=== PATIENT | male | born 1950 | race Caucasian/White ===

== ENCOUNTER 2019-06-11 09:25 | Outpatient (CLI) | payer MEDICARE, BC ==
[2019-06-11 17:15] LABS: BASOPHILS # (AUTO) 0.1 10^3/uL (0.0-0.1); BASOPHILS % (AUTO) 0.9 %; EOSINOPHILS # (AUTO) 0.2 10^3/uL (0.0-0.7); EOSINOPHILS % (AUTO) 3.5 %; HGB - HEMOGLOBIN 14.7 g/dL (14.0-18.0); LYMPHOCYTES # (AUTO) 1.5 10^3/uL (1.5-3.5); LYMPHOCYTES % (AUTO) 28.1 %; MEAN CORPUSCULAR HEMOGLOBIN 27.5 pg (27.0-31.0); MEAN PLATELET VOLUME 10.8 fL (7.4-11.4); MONOCYTES # (AUTO) 0.5 10^3/uL (0.0-1.0); MONOCYTES % (AUTO) 8.5 %; NEUTROPHILS # (AUTO) 3.2 10^3/uL (1.5-6.6); NEUTROPHILS % (AUTO) 58.8 %; PLT - PLATELET COUNT 196 10^3/uL (130-450); RED BLOOD COUNT 5.35 10^6/uL (4.70-6.10); RED CELL DISTRIBUTION WIDTH 13.4 % (12.0-15.0); WHITE BLOOD COUNT 5.4 x10^3/uL (4.8-10.8)
[2019-06-11 18:10] LABS: ALBUMIN 4.1 g/dL (3.2-5.5); ALBUMIN/GLOBULIN RATIO 1.2 (1.0-2.2); ALKALINE PHOSPHATASE 73 IU/L (42-121); ALT ALANINE AMINOTRANSFERASE 27 IU/L (10-60); AST ASPARTATE AMINOTRANSFERASE 26 IU/L (10-42); BILIRUBIN,TOTAL 1.1 mg/dL (0.2-1.0); BUN - BLOOD UREA NITROGEN 25 mg/dL (6-20); CALCIUM 9.5 mg/dL (8.5-10.3); CARBON DIOXIDE - CO2 26 mmol/L (21-32); CHLORIDE 103 mmol/L (101-111); CHOL/HDL RATIO 4.9 (<5.0); CHOLESTEROL 178 mg/dL; CREATININE 1.1 mg/dL (0.6-1.2); GFR - MDRD 66 (>89); GLUCOSE 106 mg/dL (70-100); HDL CHOLESTEROL 36 mg/dL; LDL CHOLESTEROL,CALCULATED 121 mg/dL; LDL/HDL RATIO 3.4 (<3.6); SODIUM 136 mmol/L (135-145); TOTAL PROTEIN 7.5 g/dL (6.7-8.2); VLDL CHOLESTEROL 21 mg/dL
[2019-06-11 18:12] LABS: CRP - C-REACTIVE PROTEIN < 1.0 mg/dL (0-1.0)
[2019-06-12 13:27] LABS: HEPATITIS C ANTIBODY NON-REACTIVE (NON-REACTIVE)
[2019-06-17 07:05] LABS: HB2 TOTAL 14.6 g/dL; HEMOGLOBIN A1C 0.64 g/dL; HEMOGLOBIN A1C % 6.2 % (4.6-6.2)
== END 2019-06-11 09:26 | disposition home or self-care (01) ==
LOC: LAB.S 09:25
PROVIDERS: ATTEND Internal Medicine
DX: Z01.818 Encounter for other preprocedural examination (principal); N40.0 Benign prostatic hyperplasia without lower urinary tract symptoms; Z13.6 Encounter for screening for cardiovascular disorders; Z79.899 Other long term (current) drug therapy; I10 Essential (primary) hypertension; G47.33 Obstructive sleep apnea (adult) (pediatric); Z20.2 Contact with and (suspected) exposure to infections with a predominantly sexual mode of transmission; F34.1 Dysthymic disorder; Z11.59 Encounter for screening for other viral diseases; Z87.39 Personal history of other diseases of the musculoskeletal system and connective tissue
CPT/HCPCS: 36415; 80053; 80061; 81599; 83036; 83721; 84153; 84443; 85025; 85651; 86140; 86780; 86803

== ENCOUNTER 2021-01-25 09:17 | Outpatient (CLI) | payer MEDICARE, BC ==
[2021-01-25 12:22] VITALS: BP 129/82
--- NOTE | 2021-01-25 12:22 | SLEEP CARE CONSULTATION ---
Information from patient questionnaire entered by Corry Tran. I have reviewed and concur with the information entered by Corry Tran. This document represents the service I personally performed and the decisions made by me, Fern Flores ARNP. History of Present Illness Service Date and Time: 01/25/2021 09 Reason for Visit: New patient, Previously diagnosed sleep apnea, sleep apnea on CPAP therapy Chief Complaint: reports: Other (update supplies) Usual bedtime: 11 pm Time it takes to fall asleep: 30 minutes to 1 hour Snores at night: Yes Observed to quit breathing while asleep: Yes Sleeps alone due to snoring: Yes Number of times waking at night: 1-2 Reasons for waking at night: reports: Bathroom Toss, Turn, or Twitch while sleeping: No Recalls having dreams: Yes Usually gets out of bed at: 9 am Feels refreshed in the morning: Yes (sometimes) Morning headache: Yes (occasionally, resolves in 1-2 hours) Sleepy or fatigued during the day: Yes (sometimes) Ever fallen asleep while driving: No Takes day naps: Yes Dreams during day naps: Yes Prior sleep studies: Yes Year and Where: 7 years ago in [place] Additional HPI information: MICHAEL MOORE was previously diagnosed to have mild obstructive sleep apnea- hypopnea syndrome and comes in today to establish care for his CPAP therapy. - Parasomnia Symptoms Ever been unable to move upon waking from sleep: No Walks in sleep: No Talks in sleep: Yes Ever acted out dreams in sleep: No Ever felt weak in the knees when startled or emotional: Yes Bothered by creepy, crawly, restless sensations in legs: No Problems with memory or concentration: Yes CPAP Compliance Data - Data Reviewed with Patient Average duration of nightly device use: 6 hr 31 min Compliance rate %: 93 (120 days) Current pressure setting (cmH2O): 10-20 Average residual AHI: 1.5 Compliance data discussion: He gets his supplies from [facility]. He uses a nasal cushion mask by [employer]. Subjective Patient concerns: reports: dry mouth, nose, throat (dry mouth, mouth will fall open, water at night). denies: aerophagia, mask discomfort, air blowing in eyes, mask leak noise, condensation in mask/hose, nasal congestion, epistaxis, other Observed to snore while using device: No Current pressure setting perceived as: comfortable On therapy, patient: reports: sleeping better, awakening more refreshed, being more awake and alert during the day, more rested overall. denies: drowsiness while driving Initial [place] Sleepiness Scale score: 7 (in 2020) Past Medical History Past Medical History: reports: Hypertension, Arthritis, Arrythmia, Depression, Attention deficit Social History The patient's occupation is a RETIRED. Patient is Single and lives in [place]. Have you smoked in the past 12 months: No Alcohol use: Yes Alcohol amount and frequency: 2 glasses every 2-3 weeks Caffeine use: Yes Caffeine amount and frequency: coffee in the A.M. Family History Family history of sleep disordered breathing: Yes Family Hx Sleep Apnea: Mother: Sleep apnea - Untreated, Father: Snoring, Sleep apnea - Untreated, Sibling: Sleep apnea - Treated Allergies and Home Medications Drug allergies reviewed: Yes (NKDA) Home medication list reviewed: Yes Allergy and home medication list: Losartan Bupropion Ambien, prn (occasionally) Review of Systems Weight gain over past 5 years: 10 Cardiovascular: reports: high blood pressure, palpitations, irregular heart rate or pulse, leg or foot swelling, have to sleep sitting up Urinary: reports: urgency Psychiatric: reports: depression Ear/Nose/Throat: reports: wisdom teeth removed Musculoskeletal: reports: joint pain, back pain Physical Exam Blood Pressure: 129/82 Cuff size: wrist Heart Rate: 60 O2 Saturation: 97 Height: 5 ft 8.75 in Weight: 196 lb Body Mass Index: 29.1 BMI Classification: Overweight Heart: regular rate and rhythm Lungs: clear bilaterally Impression and Plan 1. Obstructive Sleep Apnea-Hypopnea Syndrome, Mild, with good treatment compliance and good apnea control. On CPAP therapy, the patient has better sleep quality and is more rested overall. Patient would like to obtain a second device to be able to have 1 in [address] He would also like to get a portable APAP device to be [place]. He understands that he is not eligible for a new machine and will have to pay [id number] for these devices. I will make prescriptions for these devices and he will be given copies. He is very satisfied with current treatment and pressures are comfortable. 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 I will follow up with him next year. Patient's apnea severity and rationale for treatment to reduce apnea, improve sleep quality and reduce cardiovascular and cerebrovascular events was reviewed. I also reviewed the benefit of consistent device use of CPAP for hypertension, arrhythmia, depression. * Continue auto CPAP pressure at 10-20 cmH2O * Prescription for a second device and portable device per patient request * Notify me if snoring with mask or feeling that the pressure is too much or too little * Attempt to lose weight * Call this office if any problems using CPAP * Return for follow up in 1 year, or sooner if concerns arise Counseling Topics: Spare mask, Weight loss health impact Visit Type: In Office Time Spent with Patient (minutes): 39 Provider Statement: I spent 100% of the Face to Face Visit with the patient with greater than 50% spent counseling the patient and coordination of care.
== END 2021-01-25 09:18 | disposition home or self-care (01) ==
LOC: SC 09:17
PROVIDERS: ATTEND Nurse Practitioner Family
DX: G47.33 Obstructive sleep apnea (adult) (pediatric) (principal); E66.3 Overweight; Z68.29 Body mass index [BMI] 29.0-29.9, adult
CPT/HCPCS: 99203; G0463; 99212

== ENCOUNTER 2022-01-07 10:29 | Outpatient (CLI) | payer MEDICARE, BC ==
[2022-01-07 14:55] LABS: CHOL/HDL RATIO 4.2 (<5.0); CHOLESTEROL 168 mg/dL; HDL CHOLESTEROL 40 mg/dL; LDL CHOLESTEROL,CALCULATED 115 mg/dL; LDL/HDL RATIO 2.9 (<3.6); TRIGLYCERIDES 65 mg/dL; VLDL CHOLESTEROL 13 mg/dL
[2022-01-07 20:17] LABS: ESTIMATED AVERAGE GLUCOSE 123 mg/dL (70-100); HEMOGLOBIN A1c% 5.9 % (4.27-6.07)
== END 2022-01-07 10:30 | disposition home or self-care (01) ==
LOC: LAB.S 10:29
PROVIDERS: ATTEND Nurse Practitioner Family
DX: R73.03 Prediabetes (principal); Z13.6 Encounter for screening for cardiovascular disorders
CPT/HCPCS: 36415; 80061; 83036; 83721

== ENCOUNTER 2022-09-25 12:20 | Day surgery (SDC) | payer MEDICARE, BC ==
--- NOTE | 2022-09-25 13:48 | ANESTHESIA ---
Pre-Anesthesia VS, & Labs - Diagnosis screening - Procedure colonoscopy Vital Signs: Temp Pulse Resp BP Pulse Ox O2 Flow Rate 37 C 93 13 126/66 98 09/25/22 13:05 09/25/22 13:05 09/25/22 13:05 09/25/22 13:05 09/25/22 13:05 Height: 5 ft 9 in Weight (kg): 85 kg Body Mass Index: 27.6 BMI Classification: Overweight - NPO >8 hours - Lab Results Current Lab Results: Laboratory Tests 09/25/22 13:00: POC Whole Bld Glucose 112 H Home Medications and Allergies Home Medications: Ambulatory Orders Losartan [Cozaar] 100 mg PO DAILY 09/24/22 Tadalafil [Cialis] 1 tab PO DAILY 09/24/22 buPROPion [Wellbutrin Xl] 1 tab PO DAILY 09/24/22 hydroCHLOROthiazide [Hydrodiuril] 12.5 mg PO DAILY 09/24/22 metFORMIN [Glucophage] 1 tab PO DAILY 09/24/22 Losartan [Cozaar] 100 mg PO DAILY 09/24/22 Tadalafil [Cialis] 1 tab PO DAILY 09/24/22 buPROPion [Wellbutrin Xl] 1 tab PO DAILY 09/24/22 hydroCHLOROthiazide [Hydrodiuril] 12.5 mg PO DAILY 09/24/22 metFORMIN [Glucophage] 1 tab PO DAILY 09/24/22 Allergies/Adverse Reactions: Allergies Allergy/AdvReac Type Severity Reaction Status Date / Time No Known Drug Allergies Allergy Verified 09/24/22 12:43 Anes History & Medical History - Anesthetic History Anesthesia Complications: reports: No previous complications - Medical History Cardiovascular: reports: Hypertension, High cholesterol Pulmonary: reports: Sleep apnea, CPAP use Gastrointestinal: reports: Hemorrhoids Urinary: reports: Benign prostate hypertrophy Musculoskeletal: reports: Osteoarthritis Endocrine/Autoimmune: reports: Type 2 diabetes Skin: reports: None Smoking Status: Never smoker History of Cancer?: No - Surgical History General: reports: Other Orthopedic: reports: Knee replacement, Shoulder arthroplasty Exam General: Alert, Oriented x3 Dental: WNL Mouth Opening: Greater than 4 Fingerbreadths Neck Mobility: Normal Mallampati classification: II Thyromental Distance: greater than 6 cm Respiratory: Lungs clear Cardiovascular: Regular rate Plan Anesthesia Type: Total IV Consent for Procedure(s) Verified and Reviewed: Yes Code Status: Attempt Resuscitation ASA classification: 2-Mild systemic disease Is this case an emergency?: No
[2022-09-25] MEDS ORDERED: PROPOFOL 500 MG/50 ML 500 MG/50 ML VIAL ONE (14:03)
[2022-09-25] MEDS ORDERED: ePHEDrine 50 MG/ML VIAL IVP ONE (14:46)
[2022-09-25] MEDS ORDERED: LACTATED RINGERS 1,000 ML IV ONE (14:49)
--- NOTE | 2022-09-25 14:55 | ANESTHESIA POST OP EVALUATION ---
Anesthesia Post Eval - Post Anesthesia Eval Vitals: Last Vital Signs Temp 36.4 C L 09/25/22 14:47 Pulse 92 09/25/22 14:52 Resp 15 09/25/22 14:52 BP 100/56 L 09/25/22 14:52 Pulse Ox 98 09/25/22 14:52 O2 Flow Rate CV Function Including HR & BP: Stable Pain Control: Satisfactory Nausea & Vomiting: Negative Mental Status: Baseline Respiratory Status: Airway Patent Hydration Status: Satisfactory Anesthesia Complications: None
[2022-09-25 15:20] VITALS: BP 110/63
== END 2022-09-25 12:21 | disposition home or self-care (01) ==
LOC: SDS 12:20
PROVIDERS: ATTEND Surgery
DX: Z12.11 Encounter for screening for malignant neoplasm of colon (principal); K64.1 Second degree hemorrhoids; E11.9 Type 2 diabetes mellitus without complications; G47.30 Sleep apnea, unspecified; N40.0 Benign prostatic hyperplasia without lower urinary tract symptoms; Z80.0 Family history of malignant neoplasm of digestive organs; Z79.84 Long term (current) use of oral hypoglycemic drugs
CPT/HCPCS: G0105; J7120

== ENCOUNTER 2022-11-03 08:00 | Emergency (ER) | payer MEDICARE, BC ==
--- NOTE | 2022-11-03 09:41 | ED Physician Documentation ---
PD HPI ABD PAIN - Stated complaint Stated Complaint: CONSTIPATION - Chief complaint Chief Complaint: Abd Pain - History obtained from History obtained from: Patient - History of Present Illness Timing - onset: How many days ago (6) Timing - duration: Days (6) Timing - details: Abrupt onset, Still present (He tyupically ahs a BM daily. Had not had one last Friday (6 days go) and then had knee surgery 5 days ago with less activity and also some pain meds use through the day, has not had BM still. Tried ExLax, Bisacodyl, Milk of Mag without result. Does not have feeling of impaction. tried enema.) Quality: Cramping (intermittent cramping diffuse, but mostly left abdomen.). No: Aching, Fullness/distended Location: All over / everywhere, LLQ Radiation: No: Chest, Lower back Improved by: No: Meds Associated symptoms: Constipation. No: Fever, Nausea, Vomiting, Diarrhea Similar symptoms before: Has not had sx before Recently seen: Surgery (knee surgery 5 days ago.), Other (he states he had colonscopy last year without any abormalities.) Review of Systems Constitutional: denies: Fever, Chills GI: reports: Constipation. denies: Nausea, Vomiting, Bloody / black stool Musculoskeletal: denies: Extremity swelling (he has not had any swellling of lower leg nor edema. Has some pain around knee. No noted drainage/redness.) PD PAST MEDICAL HISTORY - Past Medical History Cardiovascular: Hypertension, High cholesterol Respiratory: Sleep apnea, CPAP use Endocrine/Autoimmune: Type 2 diabetes GI: Hemorrhoids : Benign prostate hypertrophy HEENT: Chronic hearing loss Psych: Depression Musculoskeletal: Osteoarthritis Derm: None - Past Surgical History General: Other Ortho: Knee replacement, Shoulder arthroplasty - Present Medications Home Medications: Ambulatory Orders Medication Instructions Recorded Confirmed Losartan [Cozaar] 100 mg PO DAILY 09/24/22 09/24/22 Tadalafil [Cialis] 1 tab PO DAILY 09/24/22 09/24/22 buPROPion [Wellbutrin Xl] 1 tab PO DAILY 09/24/22 09/24/22 hydroCHLOROthiazide [Hydrodiuril] 12.5 mg PO DAILY 09/24/22 09/24/22 metFORMIN [Glucophage] 1 tab PO DAILY 09/24/22 09/24/22 Bisacodyl Supp [Dulcolax Supp] 10 mg MA BID PRN #10 supp 11/03/22 Lactulose 30 ml PO Q6H PRN #480 ml 11/03/22 Sennosides/Docusate Sodium 1 each PO BID #20 tablet 11/03/22 [Senna-Docusate Sodium Tablet] - Allergies Allergies/Adverse Reactions: Allergies Allergy/AdvReac Type Severity Reaction Status Date / Time No Known Drug Allergies Allergy Verified 09/24/22 12:43 - Social History Smoking Status: Never smoker PD ED PE NORMAL - Vitals Vital signs reviewed: Yes - General General: Alert and oriented X 3, No acute distress, Well developed/nourished - Cardiac Cardiac: RRR, No murmur - Respiratory Respiratory: Clear bilaterally - Abdomen Abdomen: Normal bowel sounds, Soft, Non tender (minimal tednerness LLQ without percussion nor rebound tenderness. ), Non distended, No organomegaly - Male Male : Deferred - Rectal Rectal: Deferred - Extremities Extremities: Other (right knee dressing lowered enough to see the incision and appears good without redness, warmth nor drainage. ) - Neuro Neuro: Alert and oriented X 3, No motor deficit, No sensory deficit Results - Vitals Vitals: Vital Signs - 24 hr 11/03/22 11/03/22 11/03/22 08:09 10:16 12:30 Temperature 37 C Heart Rate 90 76 88 Respiratory 18 20 18 Rate Blood Pressure 143/59 H 139/67 H 169/77 H O2 Saturation 94 99 96 Oxygen O2 Source Room air PD Medical Decision Making - ED course Complexity details: considered differential (presumedly low transit constipation given recent surgery and pain meds. But he has not had much on the softener side, so I would add stool softeners to the laxatives to work on both mush and push of constipation. No histoyr of diverticulitis and abd exam benign so I do not feel need for testing. ), d/w patient Departure - Departure Disposition: 01 Home, Self Care Clinical Impression: Constipation Condition: Stable Record reviewed to determine appropriate education?: Yes Instructions: ED Constipation Follow-Up: MARU RM ARNP [Primary Care Provider] - Prescriptions: Bisacodyl Supp [Dulcolax Supp] 10 mg MA BID PRN #10 supp PRN Reason: Constipation Lactulose 30 ml PO Q6H PRN #480 ml PRN Reason: Constipation Sennosides/Docusate Sodium [Senna-Docusate Sodium Tablet] 1 each PO BID #20 tablet Comments: You can try combination of stool softeners of barrier such such as lactulose and docusate, combined with laxatives of bisacodyl and senna. Through the day today we will do the lactulose every 2-3 hours until you are getting softer stools out. The combination will try to work on both softening of the stool and peristaltic stimulation. Recheck if not improved proved with good stool over the next couple of days and return if worsening pains nausea etc. I sent your prescription to [facility] in [place]. Discharge Date/Time: 11/03/22 12:30
[2022-11-03] MEDS ORDERED: DOCUSATE SODIUM 100 MG CAPSULE PO STA (10:11)
[2022-11-03] MEDS ORDERED: LACTULOSE 10 GM /15 ML UDC PO STA (10:11)
[2022-11-03] MEDS ORDERED: BISACODYL 10 MG SUPP PR STA (10:11)
[2022-11-03 12:31] VITALS: BP 169/77
== END 2022-11-03 12:30 | disposition home or self-care (01) ==
LOC: ED 08:00
DX: K59.00 Constipation, unspecified (principal); I10 Essential (primary) hypertension; E11.9 Type 2 diabetes mellitus without complications; Z79.84 Long term (current) use of oral hypoglycemic drugs
CPT/HCPCS: 99282; 99283; A9270

== ENCOUNTER 2023-11-17 12:14 | Outpatient (CLI) | payer MEDICARE, BC ==
--- NOTE | 2023-11-17 13:45 | XRAY Report ---
PROCEDURE: Chest 2V INDICATIONS: OXYGEN STAT BELOW REF RANGE TECHNIQUE: 2 views of the chest were acquired. COMPARISON: None. FINDINGS: Surgical changes and devices: Shoulder arthroplasties. Lungs and pleura: No pleural effusions or pneumothorax. Lungs are clear. Mediastinum: Mediastinal contours appear normal. Heart size is normal. Bones and chest wall: No suspicious bony lesions. Overlying soft tissues appear unremarkable. IMPRESSION: No acute cardiopulmonary process. Reviewed by: Saleem Diaz MD on 11/17/2023 1:44 PM PDT Approved by: Saleem Diaz MD on 11/17/2023 1:44 PM PDT Station ID: [id number]
--- NOTE | 2023-11-17 15:50 | XRAY Report ---
PROCEDURE: Lumbar Spine 2-3V INDICATIONS: LEFT SIDE SCIATICA TECHNIQUE: 3 views of the lumbar spine were acquired. COMPARISON: None. FINDINGS: Surgical change: None. Bones: 5 [id number] vertebrae are present. There is 22 degree levoscoliosis with apex at L3. No rmal bony alignment. No vertebral body compression fractures. No suspicious bony lesions. Multilevel degenerative disc disease, severe at L1-L2 and L2-L3, moderate at L3-L4 and L5 L5, mild at other lev els. Moderate facet arthropathy throughout the lumbar spine. Soft tissues: Overlying bowel gas pattern is normal. No suspicious soft tissue calcifications. IMPRESSION: Scoliosis and degenerative disc and facet disease in lumbar spine as described. Consider MRI for furt her evaluation in this patient with sciatica. Reviewed by: Benedicto Abdi MD on 11/17/2023 2:49 PM AKDT Approved by: Benedicto Abdi MD on 11/17/2023 2:49 PM AKDT Station ID: [id number]
== END 2023-11-17 12:15 | disposition home or self-care (01) ==
LOC: DI.S 12:14
DX: R79.81 Abnormal blood-gas level (principal); M47.816 Spondylosis without myelopathy or radiculopathy, lumbar region; M51.36 Other intervertebral disc degeneration, lumbar region